=== PATIENT | female | born 1980 ===

== ENCOUNTER 2018-08-10 07:39 | Day surgery (SDC) | payer BC ==
[~2018-08-10 07:39] MED LIST: Lidocaine 2% MPF (5 ml) Inj ONE; Midazolam 2 MG/2 ML VIAL ONE; Propofol 10 mg/ml Inj (20 ML) ONE
[2018-08-10 08:30] VITALS: BMI 23.9
[2018-08-10] MEDS ORDERED: Vecuronium 10 mg Inj ONE (09:16)
[2018-08-10] MEDS ORDERED: Lidocaine 2% Jelly (5 ml) TOP ONE (09:19)
[2018-08-10] MEDS ORDERED: Lactated Ringer's 1,000 ML IV ONE (09:20)
[2018-08-10 09:28] LABS: BASO % 0.6 % (0.0-2.0); EOS # 0.1 K/uL (0.0-0.7); EOS % 1.7 % (0.0-4.0); HEMOGLOBIN 13.5 g/dL (12.0-16.0); LYMPH # 2.2 K/uL (1.0-4.3); LYMPH % 31.5 % (20.0-40.0); MEAN CELL VOLUME 84.2 fl (81.0-99.0); MEAN CORPUSCULAR HEMOGLOBIN 28.3 pg (27.0-31.0); MEAN CORPUSCULAR HGB CONC 33.6 g/dL (33.0-37.0); MEAN PLATELET VOLUME 9.6 fl (7.2-11.7); MONO # 0.5 K/uL (0.0-0.8); MONO % 7.4 % (0.0-10.0); NEUT # 4.1 K/uL (1.8-7.0); NEUT % 58.8 % (50.0-75.0); NRBC % 0.2 % (0.0-0.0); RBC 4.77 Mil/uL (3.80-5.20); RED CELL DISTRIBUTION WIDTH 13.5 % (11.5-14.5); WHITE BLOOD COUNT 6.9 K/uL (4.8-10.8)
[2018-08-10] MEDS ORDERED: HYDROmorphone 0.5 mg/0.5 ml ISec IVP PRN (10:17)
[2018-08-10 13:20] VITALS: TEMP 98
[2018-08-10 14:20] VITALS: BP 105/60; PULSE 61; RESP 18; O2SAT 98
--- NOTE | 2018-08-13 22:28 | OP ---
PROCEDURE DATE: 08/10/2018 PREOPERATIVE DIAGNOSES: Abnormal uterine bleeding and possible uterine polyp. POSTOPERATIVE DIAGNOSES: Abnormal uterine bleeding and possible uterine polyp, pending pathology. SURGEON: Bashir Loera MD ANESTHESIA ADMINISTERED BY: David Mejía MD ANESTHESIA: General anesthesia. PROCEDURE: Hysteroscopy and dilatation and curettage. ESTIMATED BLOOD LOSS: Minimal blood loss. DESCRIPTION OF PROCEDURE: With the patient in dorsal lithotomy position under general anesthesia, the patient was prepped and draped in the usual sterile manner. A straight catheter was used to empty the bladder after which a weighted speculum was placed in the posterior vagina. The cervix was grasped with single-tooth tenaculum and dilated. After this was done, hysteroscopy was done visualizing several hyperplastic tissue looking around in the cavity. The decision was made to do dilatation and curettage. I obtained like small amount to moderate amount of tissue, and bleeding was minimal. After this was done, the instruments were removed from the vagina and cervix. The patient tolerated the procedure well and was in satisfactory condition on the way to recovery room. Bashir Loera MD
== END 2018-08-10 10:36 | disposition home or self-care (01) ==
LOC: H.OPSURG 07:39
PROVIDERS: ATTEND Specialist
DX: N84.0 Polyp of corpus uteri (principal); N93.9 Abnormal uterine and vaginal bleeding, unspecified
CPT/HCPCS: 36415; 58558; 85025; 88305; J2250; J2704; J3010; J7030; J7120